=== PATIENT | female | born 1955 | race Caucasian/White ===

== ENCOUNTER 2023-06-14 09:29 | Outpatient (OUT) | payer BC, SELFPAY ==
[2023-06-14 10:07] LABS: Basophils Absolute Auto 0.1 10^3/uL (0.0-0.1); Basophils Percent Auto 0.8 % (0.2-2.0); Eosinophils Absolute Auto 0.2 10^3/uL (0.0-0.7); Eosinophils Percent Auto 3.7 % (0.9-7.0); Hematocrit 39.6 % (36.0-48.0); Hemoglobin 12.8 g/dL (12.0-16.0); Immature Granulocytes Abs Auto 0.01 10^3/uL (0.00-0.03); Immature Granulocytes Pct Auto 0.2 % (0.0-0.5); Lymphocytes Absolute Auto 1.3 10^3/uL (1.2-3.8); Lymphocytes Percent Auto 19.4 % (20.5-60.0); Mean Corpuscular HGB Conc 32.3 g/dL (29.9-35.2); Mean Corpuscular Hemoglobin 29.6 pg (26.7-34.0); Mean Corpuscular Volume 91.7 fL (81.0-99.0); Mean Platelet Volume 9.3 fL (9.5-13.5); Monocytes Absolute Auto 0.5 10^3/uL (0.3-0.8); Monocytes Percent Auto 7.3 % (1.7-12.0); Neutrophils Absolute Auto 4.5 10^3/uL (1.4-6.5); Neutrophils Percent Auto 68.6 % (43.0-75.0); Platelet Count 241 10^3/uL (150-450); Red Blood Count 4.32 10^6/uL (4.20-5.40); Red Cell Distribution Width 13.2 % (11.0-15.0); White Blood Count 6.6 10^3/uL (4.0-11.0)
[2023-06-14 11:08] LABS: Estimated Average Glucose 128 mg/dL; Glycohemoglobin A1C 6.1 % (4.5-6.2)
[2023-06-14 11:33] LABS: Alanine Aminotransferase 25 U/L (14-59); Albumin Globulin Ratio 0.9; Albumin Level 3.5 g/dL (3.4-5.0); Alkaline Phosphatase 81 U/L (46-116); Anion Gap 11.7; Aspartate Amino Transferase 15 U/L (15-37); BUN Creatinine Ratio 23.4; Bilirubin Total 0.3 mg/dL (0.2-1.0); Calcium 9.2 mg/dL (8.5-10.1); Carbon Dioxide 28.5 mmol/L (21.0-32.0); Chloride 103 mmol/L (98-107); Chol HDL Ratio 3.3; Cholesterol 177 mg/dL (<=200); Estimated GFR (African America >60 (>=60); Estimated GFR (Non-African Ame 59 (>=60); Free T3 2.97 pg/mL (2.18-3.98); Globulin 3.9 g/dL; Glucose 122 mg/dL (74-106); HDL Cholesterol 54 mg/dL (40-60); Potassium 4.2 mmol/L (3.5-5.1); Sodium 139 mmol/L (136-145); Total Protein 7.4 g/dL (6.4-8.2); Triglycerides 115 mg/dL (<=150)
[2023-06-15 12:13] LABS: Insulin 25.2 uIU/mL (2.6-24.9)
== END 2023-06-14 09:30 | disposition home or self-care (01) ==
PROVIDERS: PCP Family Medicine; Visit Provider Family Medicine
DX: Z00.00 Encounter for general adult medical examination without abnormal findings (principal); E78.5 Hyperlipidemia, unspecified; R73.09 Other abnormal glucose; Z12.12 Encounter for screening for malignant neoplasm of rectum; D64.9 Anemia, unspecified; E55.9 Vitamin D deficiency, unspecified
CPT/HCPCS: 36415; 80053; 80061; 82306; 83036; 83525; 83540; 84436; 84443; 84481; 85025

== ENCOUNTER 2024-07-03 08:10 | Outpatient (OUT) | payer BC, SELFPAY ==
--- OUTSIDE RECORDS SUMMARY | 2024-07-03 08:31 | XMS_ITS | CCD ---
Author Organization [facility] Care Team Providers Care Show Jumping Instructor Name Role Phone DR ROBERT BYRD Admitting Unavailable DR ROBERT BYRD Attending Unavailable DR ROBERT BYRD Primary Care Unavailable DR ROBERT BYRD Consulting Unavailable DR ROBERT BYRD Admitting Unavailable DR ROBERT BYRD Attending Unavailable DR ROBERT BYRD Primary Care Unavailable DR ROBERT BYRD Consulting Unavailable Allergies Allergy Classification Reported Allergen(s) Allergy Type Date of Onset Reaction(s) Facility (1 source) Penicillins Drug allergy (disorder) 03-17-2014 [facility] Repository (1 source) Sulfonamides (Antibiotic) Drug allergy (disorder) 03-17-2014 [facility] Repository Problems Problem Classification Problem Date Documented Da te Episodic/Chronic Diabetes mellitus without complication (1 source) Type 2 diabetes mellitus without complications; Translations: [TYPE 2 DM WITHOUT COMPLICATIONS] Onset: 06-10-2022 Chronic Disorders of lipid metabolism (1 source) Hyperlipidemia, unspecified; Translations: [HYPERLIPIDEMIA UNSPECIFIED] Onset: 06-10-2022 Chronic Essential hypertension (1 source) Essential (primary) hypertension; Translations: [ESSENTIAL PRIMARY HYPERTENSION] Onset: 06-10-2022 Chronic Malaise and fatigue (1 source) Other fatigue; Translations: [OTHER FATIGUE] Onset: 06-10-2022 Episodic Results Test Name Value Interpretation Reference Range Facil ity CBC AUTO DIFFon 06-06-2022 BASO # 0.1 103/ul Normal 0.0-0.1 [facility] Comment on above: Performed By: #### T 4LC, T3UPT #### [facility] [address] [place], [place] [address] Dr. Ani Garcia Basophils/100 WBC (Bld) 1.1 % Normal 0.2-2.0 [facility] Comment on above: Performed By: #### T 4LC, T3UPT #### [facility] [address] [place] [address] Dr. Ani Garcia EO # 0.2 103/ul Normal 0.0-0.7 [facility] Comment on above: Performed By: #### T 4LC, T3UPT #### [facility] [address] [place] [address] Dr. Ani Garcia Eosinophils/100 WBC (Bld) 3.3 % Normal 0.9-7.0 [facility] Comment on above: Performed By: #### T 4LC, T3UPT #### [facility] [address] [place] [address] Dr. Ani Garcia Erythrocyte distribution width (RBC) [Ratio] 13.8 % Normal 11.0-15.0 [facility] Comment on above: Performed By: #### T 4LC, T3UPT #### [facility] [address] [place] [address] Dr. Ani Garcia Hematocrit (Bld) [Volume fraction] 36.2 % Normal 36.0-48.0 [facility] Comment on above: Performed By: #### T 4LC, T3UPT #### [facility] [address] [place] [address] Dr. Ani Garcia Hemoglobin (Bld) [Mass/Vol] 12.8 g/dL Normal 12.0-16.0 [facility] Comment on above: Performed By: #### T 4LC, T3UPT #### [facility] [address] [place] [address] Dr. Ani Garcia IG # 0.01 10e3/ul Normal 0.00-0.03 [facility] Comment on above: Performed By: #### T 4LC, T3UPT #### [facility] [address] [place] [address] Dr. Ani Garcia IG % 0.2 % Normal 0.0-0.5 [facility] Comment on above: Performed By: #### T 4LC, T3UPT #### [facility] [address] [place] [address] Dr. Ani Garcia LYMPH # 1.4 103/ul Normal 1.2-3.8 [facility] Comment on above: Performed By: #### T 4LC, T3UPT #### [facility] [address] [place] [address] Dr. Ani Garcia Lymphocytes/100 WBC (Bld) 26.3 % Normal 20.5-60.0 [facility] Comment on above: Performed By: #### T 4LC, T3UPT #### [facility] [address] [place] [address] Dr. Ani Garcia MANUAL DIFF REQ NO Normal [facility] Comment on above: Performed By: #### T 4LC, T3UPT #### [facility] [address] [place] [address] Dr. Ani Garcia MCH (RBC) [Entitic mass] 29.2 pg Normal 26.7-34.0 [facility] Comment on above: Performed By: #### T 4LC, T3UPT #### [facility] [address] [place] [address] Dr. Ani Garcia MCHC (RBC) [Mass/Vol] 35.4 g/dL Critically high 29.9-35.2 [facility] Comment on above: Performed By: #### T 4LC, T3UPT #### [facility] [address] [place] [address] Dr. Ani Garcia MCV (RBC) [Entitic vol] 82.6 fL Normal 81.0-99.0 [facility] Comment on above: Performed By: #### T 4LC, T3UPT #### [facility] [address] [place] [address] Dr. Ani Garcia MONO # 0.4 103/ul Normal 0.3-0.8 [facility] Comment on above: Performed By: #### T 4LC, T3UPT #### [facility] [address] [place] [address] Dr. Ani Garcia Monocytes/100 WBC (Bld) 6.5 % Normal 1.7-12.0 [facility] Comment on above: Performed By: #### T 4LC, T3UPT #### [facility] [address] [place] [address] Dr. Ani Garcia NEUT # 3.4 103/ul Normal 1.4-6.5 [facility] Comment on above: Performed By: #### T 4LC, T3UPT #### [facility] [address] [place] [address] Dr. Ani Garcia Neutrophils/100 WBC (Bld) 62.6 % Normal 43.0-75.0 [facility] Comment on above: Performed By: #### T 4LC, T3UPT #### [facility] [address] [place] [address] Dr. Ani Garcia Platelet mean volume (Bld) [Entitic vol] 9.1 fL Critically low 9.5-13.5 [facility] Comment on above: Performed By: #### T 4LC, T3UPT #### [facility] [address] [place] [address] Dr. Ani Garcia PLT 233 103/ul Normal 150-450 [facility] Comment on above: Performed By: #### T 4LC, T3UPT #### [facility] [address] [place] [address] Dr. Ani Garcia RBC 4.38 106/ul Normal 4.20-5.40 [facility] Comment on above: Performed By: #### T 4LC, T3UPT #### [facility] [address] [place] [address] Dr. Ani Garcia WBC 5.4 103/ul Normal 4.0-11.0 [facility] Comment on above: Performed By: #### T 4LC, T3UPT #### [facility] [address] [place] [address] Dr. Ani Garcia FREE T3on 06-06-2022 FREE T3 2.92 pg/mlL Normal 2.18-3.98 [facility] Comment on above: Performed By: #### T 4LC, T3UPT #### [facility] [address] [place] [address] Dr. Ani Garcia GLYCOHEMOGLOBIN A1Con 2022 ADA RECOMMENDATION SEE BELOW Normal [facility] Comment on above: Result Comment: ADA RECOMMENDED LIMIT 4.0 - 6.0 ADA THERAPEUTIC TARGET < 7.0 ACTION SUGGESTED > 7.0 Performed By: #### T 4LC, T3UPT #### [facility] [address] [place] [address] [address] Ani Garcia Glucose [Mass/Vol] 123 mg/dL Normal [facility] Comment on above: Performed By: #### T 4LC, T3UPT #### [facility] [address] [place] [address] [address] Ani Garcia HbA1c (Bld) [Mass fraction] 5.9 % Normal 4.5-6.2 [facility] Comment on above: Performed By: #### T 4LC, T3UPT #### [facility] [address] [place] [address] [address] Ani Garcia IRONon 06-06-2022 Iron [Mass/Vol] 99.0 ug/dL Normal 50.0-170.0 [facility] Comment on above: Performed By: #### I GALINA #### [facility] [address] [place] [address] Dr. Ani Garcia LIPID PROFILEon 06-06-2022 CHOL-HDL RATIO NORM SEE BELOW Normal [facility] Comment on above: Result Comment: 3.3 - 4.4 LOW RISK 4.4 - 7.1 AVERAGE RISK 7.1 - 11.0 MODERATE RISK >11.0 HIGH RISK Performed By: #### T 4LC, T3UPT #### [facility] [address] [place] [address] Dr. Ani Garcia Cholesterol [Mass/Vol] 214 mg/dL Critically high <=200 [facility] Comment on above: Performed By: #### T 4LC, T3UPT #### [facility] [address] [place] [address] Dr. Ani Garcia Cholesterol in HDL [Mass/Vol] 61 mg/dL Critically high 40-60 [facility] Comment on above: Performed By: #### T 4LC, T3UPT #### [facility] [address] [place] [address] [address] Ani Garcia Cholesterol in LDL [Mass/Vol] 126.4 mg/dL Normal [facility] Comment on above: Performed By: #### T 4LC, T3UPT #### [facility] [address] [place] [address] [address] Ani Garcia Cholesterol.total/Cho lesterol in HDL [Mass ratio] 3.5 {ratio} Normal [facility] Comment on above: Performed By: #### T 4LC, T3UPT #### [facility] [address] [place] [address] [address] Ani Garcia HDL NORMAL > or = 60 mg/dl - LOW CARDIOVASCULAR RISK <40 mg/dl - HIGH CARDIOVASCULAR RISK Normal [facility] Comment on above: Performed By: #### T 4LC, T3UPT #### [facility] [address] [place] [address] [address] Ani Garcia LDL CALC NORMAL SEE BELOW Normal [facility] Comment on above: Result Comment: <100 mg/dl OPTIMAL 100 - 129 mg/dl NEAR OR ABOVE OPTIMAL 130 - 159 mg/dl BORDERLINE HIGH 160 - 189 mg/dl HIGH >190 mg/dl VERY HIGH Performed By: #### T 4LC, T3UPT #### [facility] [address] [place] [address] [address] Ani Garcia Triglyceride [Mass/Vol] 133 mg/dL Normal <=150 [facility] Comment on above: Performed By: #### T 4LC, T3UPT #### [facility] [address] [place] [address] Dr. Ani Garcia VLDL CALC 26.6 mg/dL Normal [facility] Comment on above: Performed By: #### T 4LC, T3UPT #### [facility] [address] [place] [address] [address] Ani Garcia PROF 14(COMP METB)on 023 Albumin [Mass/Vol] 3.8 g/dL Normal 3.4-5.0 [facility] Comment on above: Performed By: #### T 4LC, T3UPT #### [facility] [address] [place] [address] Dr. Ani Garcia Albumin/Globulin [Mass ratio] 1.1 {ratio} Normal [facility] Comment on above: Performed By: #### T 4LC, T3UPT #### [facility] [address] [place] [address] [address] Ani Garcia ALP [Catalytic activity/Vol] 87 U/L Normal 46-116 [facility] Comment on above: Performed By: #### T 4LC, T3UPT #### [facility] [address] [place] [address] [address] Ani Garcia ALT [Catalytic activity/Vol] 22 U/L Normal 14-59 [facility] Comment on above: Performed By: #### T 4LC, T3UPT #### [facility] [address] [place] [address] [address] Ani Garcia Anion gap [Moles/Vol] 11.0 mmol/L Normal [facility] Comment on above: Performed By: #### T 4LC, T3UPT #### [facility] [address] [place] [address] Dr. Ani Garcia AST [Catalytic activity/Vol] 23 U/L Normal 15-37 [facility] Comment on above: Performed By: #### T 4LC, T3UPT #### [facility] [address] [place] [address] [address] Ani Garcia Bilirubin [Mass/Vol] 0.5 mg/dL Normal 0.2-1.0 [facility] Comment on above: Performed By: #### T 4LC, T3UPT #### [facility] [address] [place] [address] Dr. nAi Garcia Calcium [Mass/Vol] 9.2 mg/dL Normal 8.5-10.1 [facility] Comment on above: Performed By: #### T 4LC, T3UPT #### [facility] [address] [place] [address] Dr. Ani Garcia Chloride [Moles/Vol] 102 mmol/L Normal 98-107 [facility] Comment on above: Performed By: #### T 4LC, T3UPT #### [facility] [address] [place] [address] Dr. Ani Garcia CO2 [Moles/Vol] 30.3 mmol/L Normal 21.0-32.0 [facility] Comment on above: Performed By: #### T 4LC, T3UPT #### [facility] [address] [place] [address] [address] Ani Garcia Creatinine [Mass/Vol] 0.86 mg/dL Normal 0.55-1.02 [facility] Comment on above: Performed By: #### T 4LC, T3UPT #### [facility] [address] [place] [address] [address] Ani Garcia EGFR-AF CITIZEN OF [place] >60 Normal >=60 [facility] Comment on above: Performed By: #### T 4LC, T3UPT #### [facility] [address] [place] [address] [address] Ani Garcia EGFR-NON AF CITIZEN OF [place] >60 Normal >=60 [facility] Comment on above: Performed By: #### T 4LC, T3UPT #### [facility] [address] [place] [address] [address] Ani Garcia Globulin (S) [Mass/Vol] 3.5 g/dL Normal [facility] Comment on above: Performed By: #### T 4LC, T3UPT #### [facility] [address] [place] [address] [address] Ani Garcia Glucose [Mass/Vol] 125 mg/dL Critically high 74-106 [facility] Comment on above: Performed By: #### T 4LC, T3UPT #### [facility] [address] [place] [address] [address] Ani Garcia Potassium [Moles/Vol] 4.3 mmol/L Normal 3.5-5.1 [facility] Comment on above: Performed By: #### T 4LC, T3UPT #### [facility] [address] [place] [address] [address] Ani Garcia Protein [Mass/Vol] 7.3 g/dL Normal 6.4-8.[address] [facility] Comment on above: Performed By: #### T 4LC, T3UPT #### [facility] [address] [place] [address] [address] Ani Garcia Sodium [Moles/Vol] 139 mmol/L Normal 136-[address] [facility] Comment on above: Performed By: #### T 4LC, T3UPT #### [facility] [address] [place] [address] Dr. Ani Garcia Urea nitrogen [Mass/Vol] 12.0 mg/dL Normal 7.0-18.0 [facility] Comment on above: Performed By: #### T 4LC, T3UPT #### [facility] [address] [place] [address] Dr. Ani Garcia Urea nitrogen/Creatinine [Mass ratio] 14.0 mg/mg Normal [facility] Comment on above: Performed By: #### T 4LC, T3UPT #### [facility] [address] [place] [address] Dr. Ani Garcia T4on 06-06-2022 T4 [Mass/Vol] 9.30 ug/dL Normal 4.80-13.90 [facility] Comment on above: Performed By: #### T 4LC, T3UPT #### [facility] [address] [place] [address] Dr. Ani Garcia TSHon 06-06-2022 TSH 0.767 uIU/mL Normal 0.358-3.740 [facility] Comment on above: Performed By: #### T 4LC, T3UPT #### [facility] [address] [place] [address] Dr. Ani Garcia T3 UPTAKEon 06-12-2021 Free Thyroxine Index 2.1 Normal 1.2-4.9 [facility] Comment on above: Performed By: #### T 4LC, T3UPT #### [facility] [address] [place] [address] Dr. Ani Garcia T3 Uptake 25 % Normal 24-39 [facility] Comment on above: Performed By: #### T 4LC, T3UPT #### [facility] [address] [place] [address] Dr. Ani Garcia T4 LABCORPon 06-12-2021 T4 [Mass/Vol] 8.5 ug/dL Normal 4.5-12.0 [facility] Comment on above: Performed By: #### T 4LC, T3UPT #### [facility] [address] [place] [address] [address] Ani Garcia CBC AUTO DIFFon 06-11-2021 BASO # 0.1 103/ul Normal 0.0-0.1 [facility] Comment on above: Performed By: #### C BC #### [facility] [address] [place] [address] [address] Ani Garcia Basophils/100 WBC (Bld) 1.1 % Normal 0.2-2.0 [facility] Comment on above: Performed By: #### C BC #### [facility] [address] [place] [address] Dr. Ani Garcia EO # 0.2 103/ul Normal 0.0-0.7 [facility] Comment on above: Performed By: #### C BC #### [facility] [address] [place] [address] Dr. Ani Garcia Eosinophils/100 WBC (Bld) 3.0 % Normal 0.9-7.0 [facility] Comment on above: Performed By: #### C BC #### [facility] [address] [place] [address] Dr. Ani Garcia Erythrocyte distribution width (RBC) [Ratio] 13.2 % Normal 11.0-15.0 [facility] Comment on above: Performed By: #### C BC #### [facility] [address] [place] [address] Dr. Ani Garcia Hematocrit (Bld) [Volume fraction] 41.7 % Normal 36.0-48.0 [facility] Comment on above: Performed By: #### C BC #### [facility] [address] [place] [address] Dr. Ani Garcia Hemoglobin (Bld) [Mass/Vol] 13.2 g/dL Normal 12.0-16.0 [facility] Comment on above: Performed By: #### C BC #### [facility] [address] [place] [address] Dr. Ani Garcia IG # 0.03 10e3/ul Normal 0.00-0.03 [facility] Comment on above: Performed By: #### C BC #### [facility] [address] [place] [address] Dr. Ani Garcia IG % 0.5 % Normal 0.0-0.5 [facility] Comment on above: Performed By: #### C BC #### [facility] [address] [place] [address] Dr. Ani Garcia LYMPH # 1.3 103/ul Normal 1.2-3.8 [facility] Comment on above: Performed By: #### C BC #### [facility] [address] [place] [address] Dr. Ain Garcia Lymphocytes/100 WBC (Bld) 22.3 % Normal 20.5-60.0 [facility] Comment on above: Performed By: #### C BC #### [facility] [address] [place] [address] Dr. Ani Garcia MANUAL DIFF REQ NO Normal [facility] Comment on above: Performed By: #### C BC #### [facility] [address] [place] [address] Dr. Ani Garcia MCH (RBC) [Entitic mass] 29.1 pg Normal 26.7-34.0 [facility] Comment on above: Performed By: #### C BC #### [facility] [address] [place] [address] Dr. Ani Garcia MCHC (RBC) [Mass/Vol] 31.7 g/dL Normal 29.9-35.2 [facility] Comment on above: Performed By: #### C BC #### [facility] [address] [place] [address] Dr. Ani Garcia MCV (RBC) [Entitic vol] 91.9 fL Normal 81.0-99.0 [facility] Comment on above: Performed By: #### C BC #### [facility] [address] [place] [address] Dr. Ani Garcia MONO # 0.4 103/ul Normal 0.3-0.8 [facility] Comment on above: Performed By: #### C BC #### [facility] [address] [place] [address] Dr. Ani Garcia Monocytes/100 WBC (Bld) 6.7 % Normal 1.7-12.0 [facility] Comment on above: Performed By: #### C BC #### [facility] [address] [place] [address] Dr. Ani Garcia NEUT # 3.7 103/ul Normal 1.4-6.5 [facility] Comment on above: Performed By: #### C BC #### [facility] [address] [place] [address] Dr. Ani Garcia Neutrophils/100 WBC (Bld) 66.4 % Normal 43.0-75.0 [facility] Comment on above: Performed By: #### C BC #### [facility] [address] [place] [address] Dr. Ani Garcia Platelet mean volume (Bld) [Entitic vol] 9.9 fL Normal 9.5-13.5 [facility] Comment on above: Performed By: #### C BC #### [facility] [address] [place] [address] Dr. Ani Garcia PLT 250 103/ul Normal 150-450 [facility] Comment on above: Performed By: #### C BC #### [facility] [address] [place] [address] Dr. Ani Garcia RBC 4.54 106/ul Normal 4.20-5.40 [facility] Comment on above: Performed By: #### C BC #### [facility] [address] [place] [address] Dr. Ani Garcia WBC 5.6 103/ul Normal 4.0-11.0 [facility] Comment on above: Performed By: #### C BC #### [facility] [address] [place] [address] Dr. Ani Garcia GLYCOHEMOGLOBIN A1Con 2021 ADA RECOMMENDATION ADA THERAPEUTIC TARGET 6.0 - 7.0 ACTION SUGGESTED > 7.0 Normal [facility] Comment on above: Performed By: #### A 1C #### [facility] [address] [place] [address] [address] Ani Garcia Glucose [Mass/Vol] 128 mg/dL Normal [facility] Comment on above: Performed By: #### A 1C #### [facility] [address] [place] [address] Dr. Ani Garcia HbA1c (Bld) [Mass fraction] 6.1 % Critically high <=6.0 [facility] Comment on above: Performed By: #### A 1C #### [facility] [address] [place] [address] Dr. Ani Garcia IRONon 06-11-2021 Iron [Mass/Vol] 95.0 ug/dL Normal 37.0-170.0 [facility] Comment on above: Performed By: #### I GALINA #### [facility] [address] [place] [address] Dr. Ani Garcia LIPID PROFILEon 06-11-2021 CHOL-HDL RATIO NORM SEE BELOW Normal [facility] Comment on above: Result Comment: 3.3 - 4.4 LOW RISK 4.4 - 7.1 AVERAGE RISK 7.1 - 11.0 MODERATE RISK >11.0 HIGH RISK Performed By: #### C MP, TSH, URIC, LIPID #### [facility] [address] [place] [address] Dr. Ani Garcia Cholesterol [Mass/Vol] 215 mg/dL Critically high <=200 [facility] Comment on above: Performed By: #### C MP, TSH, URIC, LIPID #### [facility] [address] [place] [address] [address] Ani Garcia Cholesterol in HDL [Mass/Vol] 48 mg/dL Normal [facility] Comment on above: Performed By: #### C MP, TSH, URIC, LIPID #### [facility] [address] [place] [address] Dr. Ani Garcia Cholesterol in LDL [Mass/Vol] 129.2 mg/dL Normal [facility] Comment on above: Performed By: #### C MP, TSH, URIC, LIPID #### [facility] [address] [place] [address] Dr. Ani Garcia Cholesterol.total/Cho lesterol in HDL [Mass ratio] 4.5 {ratio} Normal [facility] Comment on above: Performed By: #### C MP, TSH, URIC, LIPID #### [facility] [address] [address] [address] Ani Garcia HDL NORMAL > or = 60 mg/dl - LOW CARDIOVASCULAR RISK <40 mg/dl - HIGH CARDIOVASCULAR RISK Normal [facility] Comment on above: Performed By: #### C MP, TSH, URIC, LIPID #### [facility] [address] [place] [address] [address] Ani Garcia LDL CALC NORMAL SEE BELOW Normal [facility] Comment on above: Result Comment: <100 mg/dl OPTIMAL 100 - 129 mg/dl NEAR OR ABOVE OPTIMAL 130 - 159 mg/dl BORDERLINE HIGH 160 - 189 mg/dl HIGH >190 mg/dl VERY HIGH Performed By: #### C MP, TSH, URIC, LIPID #### [facility] [address] [place] [address] Dr. Ani Garcia Triglyceride [Mass/Vol] 189 mg/dL Critically high <=150 [facility] Comment on above: Performed By: #### C MP, TSH, URIC, LIPID #### [facility] [address] [place] [address] Dr. Ani Garcia VLDL CALC 37.8 mg/dL Normal [facility] Comment on above: Performed By: #### C MP, TSH, URIC, LIPID #### [facility] [address] [place] [address] Dr. Ani Garcia PROF 14(COMP METB)on 022 Albumin [Mass/Vol] 4.0 g/dL Normal 3.5-5.0 [facility] Comment on above: Performed By: #### C MP, TSH, URIC, LIPID #### [facility] [address] [place] [address] Dr. Ani Garcia Albumin/Globulin [Mass ratio] 1.1 {ratio} Normal [facility] Comment on above: Performed By: #### C MP, TSH, URIC, LIPID #### [facility] [address] [place] [address] Dr. Ani Garcia ALP [Catalytic activity/Vol] 77 U/L Normal 38-126 [facility] Comment on above: Performed By: #### C MP, TSH, URIC, LIPID #### [facility] [address] [address] [address] Ani Garcia ALT [Catalytic activity/Vol] 28 U/L Normal 9-52 [facility] Comment on above: Performed By: #### C MP, TSH, URIC, LIPID #### [facility] [address] [place] [address] Dr. Ani Garcia Anion gap [Moles/Vol] 11.5 mmol/L Normal Th [facility] Comment on above: Performed By: #### C MP, TSH, URIC, LIPID #### [facility] [address] [place] [address] Dr. Ani Garcia AST [Catalytic activity/Vol] 22 U/L Normal 14-36 [facility] Comment on above: Performed By: #### C MP, TSH, URIC, LIPID #### [facility] [address] [place] [address] Dr. Ani Garcia Bilirubin [Mass/Vol] 0.5 mg/dL Normal 0.2-1.3 [facility] Comment on above: Performed By: #### C MP, TSH, URIC, LIPID #### [facility] [address] [place] [address] Dr. Ani Garcia Calcium [Mass/Vol] 9.7 mg/dL Normal 8.4-10.2 [facility] Comment on above: Performed By: #### C MP, TSH, URIC, LIPID #### [facility] [address] [place] [address] Dr. Ani Garcia Chloride [Moles/Vol] 102 mmol/L Normal 98-107 [facility] Comment on above: Performed By: #### C MP, TSH, URIC, LIPID #### [facility] [address] [place] [address] Dr. Ani Garcia CO2 [Moles/Vol] 29.0 mmol/L Normal 22.0-30.0 [facility] Comment on above: Performed By: #### C MP, TSH, URIC, LIPID #### [facility] [address] [place] [address] Dr. Ani Garcia Creatinine [Mass/Vol] 0.94 mg/dL Normal 0.52-1.04 [facility] Comment on above: Performed By: #### C MP, TSH, URIC, LIPID #### [facility] [address] [place] [address] Dr. Ani Garcia EGFR-AF CITIZEN [place] >60 Normal >=60 [facility] Comment on above: Performed By: #### C MP, TSH, URIC, LIPID #### [facility] [address] [place] [address] Dr. Ani Garcia EGFR-NON AF CITIZEN OF [place] 59 mL/min/1.73m2 Critically low >=60 [facility] Comment on above: Performed By: #### C MP, TSH, URIC, LIPID #### [facility] [address] [place] [address] Dr. Ani Garcia Globulin (S) [Mass/Vol] 3.5 g/dL Normal [facility] Comment on above: Performed By: #### C MP, TSH, URIC, LIPID #### [facility] [address] [place] [address] Dr. Ani Garcia Glucose [Mass/Vol] 133 mg/dL Critically high 74-106 [facility] Comment on above: Performed By: #### C MP, TSH, URIC, LIPID #### [facility] [address] [place] [address] Dr. Ani Garcia Potassium [Moles/Vol] 4.5 mmol/L Normal 3.4-5.0 [facility] Comment on above: Performed By: #### C MP, TSH, URIC, LIPID #### [facility] [address] [place] [address] Dr. Ani Garcia Protein [Mass/Vol] 7.5 g/dL Normal 6.1-8.2 [facility] Comment on above: Performed By: #### C MP, TSH, URIC, LIPID #### [facility] [address] [place] [address] Dr. Ani Garcia Sodium [Moles/Vol] 138 mmol/L Normal 137-145 [facility] Comment on above: Performed By: #### C MP, TSH, URIC, LIPID #### [facility] [address] [place] [address] Dr. Ani Garcia Urea nitrogen [Mass/Vol] 18.0 mg/dL Critically high 7.0-17.0 [facility] Comment on above: Performed By: #### C MP, TSH, URIC, LIPID #### [facility] [address] [place] [address] Dr. Ani Garcia Urea nitrogen/Creatinine [Mass ratio] 19.1 mg/mg Normal [facility] Comment on above: Performed By: #### C MP, TSH, URIC, LIPID #### [facility] [address] [place] [address] Dr. Ani Garcia TSHon 06-11-2021 TSH 1.249 uIU/mL Normal 0.470-4.680 [facility] Comment on above: Performed By: #### C MP, TSH, URIC, LIPID #### [facility] [address] [place] [address] Dr. Ani Garcia TSH RANGE SEE BELOW Normal [facility] Comment on above: Result Comment: <0.3 4 UIU/ml HYPERTHYROID 0.34-5.60 UIU/ml EUTHYROID >5.60 UIU/ml HYPOTHYROID Performed By: #### C MP, TSH, URIC, LIPID #### [facility] [address] [place] [address] Dr. Ani Garcia URIC ACID SERUMon 06-11-2021 Urate [Mass/Vol] 7.2 mg/dL Critically high 2.5-6.2 [facility] Comment on above: Performed By: #### C MP, TSH, URIC, LIPID #### [facility] [address] [place] [address] Dr. Ani Garcia Outside Colonoscopyon 2019 Outside Colonoscopy [id number] #1.00CD:[address] [facility] Lab Reportson 03-18-2020 Lab Reports [id number] #1.00CD:[address] [facility] Provider Letter FTon 03-04 Provider Letter [facility] [place] [place] Robert Rochelle [address] [place] [address] [place] [address] Re: MARIA FERNANDA ESTRADA Date of : 1955 Thank you for your referral of Maria Fernanda Estrada who was seen on consultation on 02/23/2020 for positive fecal occult blood test. I have enclosed my consultation notes for your review. She is scheduled for a colonoscopy on 03/20/2020. Sincerely, Lance Egan MD General Surgery [facility] Consent for Procedure/Surger yon 02-26-2020 Consent for Procedure/Surgery [id number]# 1.00CD:[address] [facility] General Surgery Office/Clini c Noteon 02-26-2020 General Surgery Office/Clinic Note Chief Complaint referral for positive occult stool HPI Staff 64 year old female presents on consultation from Dr. Bydr for positive occult stool. No blood with wiping or blood in toilet. Has known hemorrhoids. Denies abdominal or rectal pain. No change in bowel habits. No previous history of colonoscopy. No known family history of colon cancer. History of Present Illness 64 yo female with h/o HTN, DMII, referred for occult blood in stools; denies change in bms or gross blood in stools, no abdominal complaints; no previous abdominal operations or endoscopy; denies asa or NSAID use, no SBE prophylaxis. no fmhx of GI malignancy or IBD. Review of Systems PHQ Score Initial Depression Screen Score: 0 ROS - Provider Constitutional: no fever, no sweats, no weight loss. Eyes: no glasses, no blurred vision, no visual loss. ENMT: no dentures, no hoarseness, no swallowing difficulties, no hearing loss, no ear infection(s), no nose bleeds. Cardiovascular: high blood pressure, no chest pain, regular heartbeat, no heart murmur. Respiratory: no shortness of breath, no cough, no asthma, no wheezing. Gastrointestinal: no nausea, no vomiting, no diarrhea, no constipation, no blood in stool, no change in bowel habits, no abdominal pain, no hepatitis. Genitourinary: no kidney stones, no urine infection, no dysuria. Musculoskeletal: no pain, no weakness. Skin: no changing moles, no rash, no skin lumps. Neurologic: no seizures, no epilepsy, no headache. Psychiatric: no emotional or psychiatric problem. Heme/Lymph: no bleeding problems, no anemia, no blood clots, no transfusions. Allergy/Immunologic: no swollen lymph nodes/glands, no IV drug abuse. Other: Additional ROS info: Except as noted in the above Review of Systems and in the History of Present Illness, all other systems have been reviewed and are negative or noncontributory. Physical Exam Vitals & Measurements T: 36.9 ?C (Tympanic) HR: 78(Peripheral) RR: 16 BP: 128/88 HT: 154.94 cm HT: 154.9 cm HEENT: normal conjunctiva, sclera clear, no scleral icterus, EOM intact, PERRLA. oral mucosa moist without lesions Neck: trachea midline , no mass, symmetric, no thyromegaly or nodules. no adenopathy Respiratory: lungs CTA, respirations non labored. Cardiovascular: regular rate and rhythm, no murmur, , no pedal edema or varicosities. Gastrointestinal: soft, non distended, no tenderness, no masses, no palpable hernias, diastasis recti no, no hepatosplenomegaly. normal bs Lymphatic: no cervical adenopathy, no axillary adenopathy, Musculoskeletal: normalgait, digits and nails without infection, nodes, cyanosis, clubbing. Skin: no rashes, no lesions, no ulcers, no subcutaneous nodules, induration. Psychiatric/Neuro: oriented to time, place, person, judgement normal, affect appropriate for age, insight intact, no focal deficits. Tests: labs reviewed,review of old records completed, Discussed surgical options, risks, and possible complications with patient. Assessment/Plan 1. Positive fecal occult blood test (R19.5: Other fecal abnormalities) plan colonoscopy under anesthesia for further evaluation, informed consent obtained. Follow-up No qualifying data available Patient Education Colonoscopy Problem List/Past Medical History Ongoing Controlled diabetes mellitus Eczema HTN (hypertension), benign Hyperuricemia Positive fecal occult blood test Historical No qualifying data Procedure/Surgical History Tonsillectomy and adenoidectomy. Medications cranberry, 1 tab, Oral, Daily Fish Oil 1000 mg oral capsule, 1000 mg= 1 cap(s), Oral, Daily Glucosamine Chondroitin, 1 tab, Oral, Daily Januvia 100 mg Tab, 100 mg= 1 tab(s), Oral, Daily lisinopril 10 mg Tab, 10 mg= 1 tab(s), Oral, Daily metformin 500 mg Tab, 500 mg= 1 tab(s), Oral, BID triamcinolone Top 0.1% Crm, 1 nathaly, Topical, BID turmeric 500 mg oral capsule, 500 mg= 1 cap(s), Oral, Daily Vitamin B Complex oral capsule, 1 cap(s), Oral, Daily vitamin E, 1 tab, Oral, Daily Allergies penicillin (Syncope) sulfa drugs (Rash) Social History Alcohol - Denies Alcohol Use, 02/23/2020 Substance Abuse - Denies Substance Abuse, 02/23/2020 Tobacco Never (less than 100 in lifetime) Tobacco Use:., 02/23/2020 Family History Acute myocardial infarction: Mother. Dementia: Mother. Diabetes mellitus type 2: Mother, Father and Brother. Hypertension: Mother and Father. Stroke: Mother. Normal [facility] Comment on above: Result Comment: Elec tronically Signed By: CATE JAMESON, Lance Avitia.issa\Date and Time Signed: 02/26/20 09:14 EDT Patient Educationon 02-26-20 20 Patient Education Colonoscopy A colonoscopy is an exam to evaluate your entire colon. In this exam, your colon is cleansed. A long fiberoptic tube is inserted through your rectum and into your colon. The fiberoptic scope (endoscope ) is a long bundle of enclosed and very flexible fibers. These fibers transmit light to the area examined and send images from that area to your caregiver. Discomfort is usually minimal. You may be given a drug to help you sleep (sedative ) during or prior to the procedure. This exam helps to detect lumps (tumors ), polyps, inflammation, and areas of bleeding. Your caregiver may also take a small piece of tissue (biopsy ) that will be examined under a microscope. LET YOUR CAREGIVER KNOW ABOUT: ? Allergies to food or medicine. ? Medicines taken, including vitamins, herbs, eyedrops, bloh-cbm-tzswrsa medicines, and creams. ? Use of steroids (by mouth or creams). ? Previous problems with anesthetics or numbing medicines. ? History of bleeding problems or blood clots. ? Previous surgery. ? Other health problems, including diabetes and kidney problems. ? Possibility of , if this applies. BEFORE THE PROCEDURE ? A clear liquid diet may be required for 2 days before the exam. ? Ask your caregiver about changing or stopping your regular medications. ? Liquid injections (enemas ) or laxatives may be required. ? A large amount of electrolyte solution may be given to you to drink over a short period of time. This solution is used to clean out your colon. ? You should be present 60 minutes prior to your procedure or as directed by your caregiver. AFTER THE PROCEDURE ? If you received a sedative or pain relieving medication, you will need to arrange for someone to drive you home. ? Occasionally, there is a little blood passed with the first bowel movement. Do not be concerned. FINDING OUT THE RESULTS OF YOUR TEST Not all test results are available during your visit. If your test results are not back during the visit, make an appointment with your caregiver to find out the results. Do not assume everything is normal if you have not heard from your caregiver or the medical facility. It is important for you to follow up on all of your test results. HOME CARE INSTRUCTIONS ? It is not unusual to pass moderate amounts of gas and experience mild abdominal cramping following the procedure. This is due to air being used to inflate your colon during the exam. Walking or a warm pack on your belly (abdomen ) may help. ? You may resume all normal meals and activities after sedatives and medicines have worn off. ? Only take htwy-fwf-erdbwyu or prescription medicines for pain, discomfort, or fever as directed by your caregiver. Do not use aspirin or blood thinners if a biopsy was taken. Consult your caregiver for medicine usage if biopsies were taken. SEEK IMMEDIATE MEDICAL CARE IF: ? You have a fever. ? You pass large blood clots or fill a toilet with blood following the procedure. This may also occur 10 to 14 days following the procedure. This is more likely if a biopsy was taken. ? You develop abdominal pain that keeps getting worse and cannot be relieved with medicine. Document Released: 05/14/2001 Document Revised: 08/08/2012 Document Reviewed: 12/27/2008 ExitCare? Patient Information ?2013 [employer] [facility]. [facility] Ambulatory Clinical Summaryo n 02-23-2020 Ambulatory Clinical Summary {[id number] [facility] Facesheeton 02-23-2020 Facesheet [id number] #1.00CD:127 [facility] Physician Referralon 020 Physician Referral [id number] #1.00CD:[address] [facility] Encounters Encounter Date Encounter Type Care Provider Facility Start: 06-10-2022 Encounter for genera l adult medical examination without abnormal findings DR ROBERT BYRD [facility] Start: 06-06-2022 End: 06-07-[address] ROBERT BYRD Facility:[facility] Start: 06-06-2022 End: 06-07-2022 Encounter for general adult medical examination without abnormal findings DR ROBERT BYRD Facility:[facility] Start: 06-11-2021 End: 06-12-[address] ROBERT BYRD Facility:[facility] Payers Date Payer Category Payer Unknown [id number] 1955 Unknown [id number] 1955 Unknown [id number] Summary Purpose Family History No Family History Records FoundNo Family History Records Found Advance Directives No Advanced Directives Records FoundNo Advanced Directives Records Found Additional Source Comments INFORMATION SOURCE (unrecogn ized section and content) DATE CREATED AUTHOR 03/26/[address] [facility] DATE CREATED AUTHOR AUTHOR'S ORGANIZ ATION 06/11/2022 [facility] FOR RECORDS PERTAINING TO PATIENTS WHO ARE OR HAVE BEEN ENROLLED IN A CHEMICAL DEPENDENCY/SUBSTANCEABUSE PROGRAM, SOME INFORMATION MAY BE OMITTED. This clinical summary was aggregated from multiple sources. Caution should be exercised in using it in the provision of clinical care. This summary normalizes information from multiple sources, and as a consequence, information in this document may materially change the coding, format and clinical context of patient data. In addition, data may be omitted in some cases. CLINICAL DECISIONS SHOULD BE BASED ON THE PRIMARY CLINICAL RECORDS. [facility] [employer] [facility]. provides no warranty or guarantee of the accuracy or completeness of information in this document.
[2024-07-03 08:58] LABS: Basophils Absolute Auto 0.1 10^3/uL (0.0-0.1); Basophils Percent Auto 1.1 % (0.2-2.0); Eosinophils Absolute Auto 0.4 10^3/uL (0.0-0.7); Eosinophils Percent Auto 5.9 % (0.9-7.0); Hematocrit 36.2 % (36.0-48.0); Hemoglobin 11.8 g/dL (12.0-16.0); Immature Granulocytes Abs Auto 0.01 10^3/uL (0.00-0.03); Immature Granulocytes Pct Auto 0.2 % (0.0-0.5); Lymphocytes Absolute Auto 1.1 10^3/uL (1.2-3.8); Lymphocytes Percent Auto 17.6 % (20.5-60.0); Mean Corpuscular HGB Conc 32.6 g/dL (29.9-35.2); Mean Corpuscular Hemoglobin 29.6 pg (26.7-34.0); Mean Platelet Volume 9.3 fL (9.5-13.5); Monocytes Absolute Auto 0.4 10^3/uL (0.3-0.8); Monocytes Percent Auto 6.7 % (1.7-12.0); Neutrophils Absolute Auto 4.3 10^3/uL (1.4-6.5); Neutrophils Percent Auto 68.5 % (43.0-75.0); Platelet Count 231 10^3/uL (150-450); Red Blood Count 3.98 10^6/uL (4.20-5.40); Red Cell Distribution Width 13.3 % (11.0-15.0); White Blood Count 6.2 10^3/uL (4.0-11.0)
[2024-07-03 09:36] LABS: Estimated Average Glucose 128 mg/dL; Glycohemoglobin A1C 6.1 % (4.5-6.2)
[2024-07-03 10:41] LABS: Alanine Aminotransferase 25 U/L (14-59); Albumin Globulin Ratio 0.9; Albumin Level 3.5 g/dL (3.4-5.0); Alkaline Phosphatase 80 U/L (46-116); Anion Gap 10.6; Aspartate Amino Transferase 16 U/L (15-37); BUN Creatinine Ratio 19.6; Bilirubin Total 0.4 mg/dL (0.2-1.0); Calcium 9.3 mg/dL (8.5-10.1); Carbon Dioxide 29.6 mmol/L (21.0-32.0); Chloride 103 mmol/L (98-107); Chol HDL Ratio 3.6; Cholesterol 200 mg/dL (<=200); Estimated GFR (African America >60 (>=60 mL/min/1.73m^2); Estimated GFR (Non-African Ame 57 (>=60 mL/min/1.73m^2); Free T3 2.71 pg/mL (2.18-3.98); Globulin 3.7 g/dL; Glucose 119 mg/dL (74-106); HDL Cholesterol 55 mg/dL (40-60); LDL Cholesterol Calculated 121.6 mg/dL; Potassium 4.2 mmol/L (3.5-5.1); Sodium 139 mmol/L (136-145); Thyroid Stimulating Hormone 1.076 uIU/mL (0.358-3.740); Total Protein 7.2 g/dL (6.4-8.2); Triglycerides 117 mg/dL (<=150); VLDL CHOLESTEROL 23.4 mg/dL
== END 2024-07-03 08:11 | disposition home or self-care (01) ==
LOC: LAB 08:12
PROVIDERS: PCP Family Medicine; Visit Provider Family Medicine
DX: E78.5 Hyperlipidemia, unspecified (principal); R53.83 Other fatigue; E11.9 Type 2 diabetes mellitus without complications; E55.9 Vitamin D deficiency, unspecified; R73.09 Other abnormal glucose
CPT/HCPCS: 36415; 80053; 80061; 82306; 83036; 83540; 84436; 84443; 84481; 85025